=== PATIENT | female | born 1970 | race Caucasian/White ===

== ENCOUNTER 2017-08-15 08:14 | Emergency (ER) | payer SELFPAY ==
[2017-08-15] MEDS ORDERED: ONDANSETRON 4 MG/2 ML VIAL IVP ONE (09:06)
[2017-08-15] MEDS ORDERED: NS 1,000 ML IV ONE (09:06)
--- NOTE | 2017-08-15 09:12 | EDPHY ---
H & P Stated Complaint: cancer pt with abd pain gi bleeding Time Seen by Provider: 08/15/17 08:41 HPI/ROS: CHIEF COMPLAINT: Right upper quadrant pain, vomiting HISTORY OF PRESENT ILLNESS: 47-year-old female with metastatic follicular papillary cancer presents with right upper quadrant pain and vomiting. Onset of right upper quadrant pain 1 week ago, gradually increasing and moderate. Associated with multiple episodes of vomiting. Unable to tolerate oral fluids for 2 days. Also feels somewhat confused. No fever. Diagnosed with cancer originally starting in the thyroid in 2011, underwent chemotherapy and XRT. Recurrence in 2014. Last chemotherapy was in February 2017. Recently moved to [place]. REVIEW OF SYSTEMS: complete 10 point ROS negative except at noted in the HPI - Personal History LMP (Females 10-55): Hysterectomy Current Tetanus/Diphtheria Vaccine: Yes - Medical/Surgical History Hx Asthma: No Hx Chronic Respiratory Disease: No Hx Diabetes: No Hx Cardiac Disease: No Hx Renal Disease: No Hx Cirrhosis: No Hx Alcoholism: No Hx HIV/AIDS: No Hx Splenectomy or Spleen Trauma: No Other PMH: hysterectomy papillary follicular cancer with mets - Social History Smoking Status: Current every day smoker - Physical Exam Exam: General Appearance: Alert, pleasant Eyes: Pupils equal and round, no conjunctival pallor or injection ENT, Mouth: Mucous membranes dry, lower lip swelling, chapped Neck: Normal inspection Respiratory: Lungs are clear to auscultation Cardiovascular: Regular rate and rhythm Gastrointestinal: Abdomen is soft, right upper quadrant tenderness Neurological: A&O, nonfocal, normal gait Skin: Warm and dry Extremities: Mild bilateral upper extremity swelling Psychiatric: Mood and affect normal Constitutional: Initial Vital Signs Temperature (C) 36.6 C 08/15/17 08:19 Heart Rate 94 08/15/17 08:19 Respiratory Rate 18 08/15/17 08:19 Blood Pressure 135/85 H 08/15/17 08:19 O2 Sat (%) 97 08/15/17 08:19 O2 Delivery Mode Room Air Allergies/Adverse Reactions: metoclopramide [From Reglan] Allergy (Verified 08/15/17 08:17) prochlorperazine [From Compazine] Allergy (Verified 08/15/17 08:17) Sulfa (Sulfonamide Antibiotics) Allergy (Verified 08/15/17 08:17) ivp dye Allergy (Uncoded 08/15/17 08:16) Home Medications: Medication Instructions Recorded Calcitriol 08/15/17 Ondansetron Odt [Zofran Odt 4 mg 4 mg PO Q4 PRN #6 tab 08/15/17 (*)] Phenergan 08/15/17 Synthroid 08/15/17 Thyrogen 08/15/17 Valium 08/15/17 Vimpat 08/15/17 Medical Decision Making - Diagnostics Imaging Results: Imaging Impressions Abdomen/Pelvis CT 08/15/17 09:06 Impression: 1. No evidence of bowel obstruction or acute intraabdominal process. 2. No evidence of metastatic disease. Specifically, no liver mass (sensitivity is diminished without IV contrast). 3. Bilateral nephrolithiasis. Findings discussed with Emergency Department physician, Daniela Melendez on 2017 at 9:41 a.m. Attention: This CT examination is specifically designed to evaluate patients who are clinically suspected of having acute obstructive uropathy. This examination does not use radiographic contrast, and as such, provides only a limited evaluation of the abdomen, pelvis and retroperitoneum. If there is further clinical suspicion for pathological conditions other than obstructive uropathy, a complete CT evaluation of the abdomen and pelvis utilizing intravenous, oral, and rectal contrast should be considered. ED Course/Re-evaluation: This patient presents with right lower quadrant pain and vomiting. IV normal saline 1 L and Zofran [address] scan without contrast ordered because of history of anaphylaxis to IV contrast. Laboratory tests discussed with the patient and her and are unremarkable. CT scan is also unremarkable for acute findings. Admission versus discharge home discussed with the patient. She was strongly prefer to go home. She was given ice chips and if she can tolerate ice chips, she will be discharged home. Abdominal exam remains benign. Tolerated oral fluids well. Abdomen remains benign. Warning signs discussed. Will follow up with Oncology as scheduled. Differential Diagnosis: Differential diagnosis includes though it is not limited to appendicitis, cholecystitis, diverticulitis, pyelonephritis, bowel perforation, small bowel obstruction. - Data Points Laboratory Results: Laboratory Results 08/15/17 09:00 08/15/17 09:00 08/15/17 08/15/17 08/15/17 09:20 09:00 09:00 WBC 6.16 10^3/uL 10^3/uL (3.80-9.50) RBC 3.64 10^6/uL L 10^6/uL (4.18-5.33) Hgb 11.0 g/dL L g/dL (12.6-16.3) Hct 33.7 % L % (38.0-47.0) MCV 92.6 fL fL (81.5-99.8) MCH 30.2 pg pg (27.9-34.1) MCHC 32.6 g/dL g/dL (32.4-36.7) RDW 16.3 % H % (11.5-15.2) Plt Count 229 10^3/uL 10^3/uL (150-400) MPV 9.9 fL fL (8.7-11.7) Neut % (Auto) 70.1 % % (39.3-74.2) Lymph % (Auto) 22.7 % % (15.0-45.0) [place] % (Auto) 5.4 % % (4.5-13.0) Eos % (Auto) 1.0 % % (0.6-7.6) Baso % (Auto) 0.5 % % (0.3-1.7) Nucleat RBC Rel Count 0.0 % % (0.0-0.2) Absolute Neuts (auto) 4.32 10^3/uL 10^3/uL (1.70-6.50) Absolute Lymphs (auto) 1.40 10^3/uL 10^3/uL (1.00-3.00) Absolute Monos (auto) 0.33 10^3/uL 10^3/uL (0.30-0.80) Absolute Eos (auto) 0.06 10^3/uL 10^3/uL (0.03-0.40) Absolute Basos (auto) 0.03 10^3/uL 10^3/uL (0.02-0.10) Absolute Nucleated RBC 0.00 10^3/uL 10^3/uL (0-0.01) Immature Gran % 0.3 % % (0.0-1.1) Immature Gran # 0.02 10^3/uL 10^3/uL (0.00-0.10) Sodium 139 mEq/L mEq/L (135-145) Potassium 4.0 mEq/L mEq/L (3.3-5.0) Chloride 101 mEq/L mEq/L (97-110) Carbon Dioxide 29 mEq/l mEq/l (22-31) Anion Gap 9 mEq/L mEq/L (8-16) BUN 15 mg/dL mg/dL (7-23) Creatinine 1.1 mg/dL H mg/dL (0.6-1.0) Estimated GFR 53 Glucose 82 mg/dL mg/dL (70-100) Calcium 8.7 mg/dL mg/dL (8.5-10.4) Total Bilirubin 0.8 mg/dL mg/dL (0.1-1.4) Conjugated Bilirubin 0.5 mg/dL mg/dL (0.0-0.5) Unconjugated Bilirubin 0.3 mg/dL mg/dL (0.0-1.1) AST 135 IU/L H IU/L (14-46) ALT 86 IU/L H IU/L (9-52) Alkaline Phosphatase 90 IU/L IU/L (38-126) Ammonia 15.0 uMOL/L uMOL/L (9.0-30.0) Total Protein 7.3 g/dL g/dL (6.3-8.2) Albumin 3.8 g/dL g/dL (3.5-5.0) Lipase 210 IU/L IU/L (23-300) Medications Given: Discontinued Medications Sodium Chloride (Ns) 1,000 mls @ 0 mls/hr IV EDNOW ONE; Wide Open PRN Reason: Protocol Stop: 08/15/17 09:07 Last Admin: 08/15/17 09:31 Dose: 1,000 mls Morphine Sulfate (Morphine) 4 mg IVP EDNOW ONE Stop: 08/15/17 09:36 Last Admin: 08/15/17 09:41 Dose: 4 mg Ondansetron HCl (Zofran) 4 mg IVP EDNOW ONE Stop: 08/15/17 09:07 Last Admin: 08/15/17 09:31 Dose: 4 mg Departure - Departure Disposition: Home, Routine, Self-Care Clinical Impression: Abdominal pain Qualifiers: Abdominal location: right upper quadrant Qualified Code(s): R10.11 - Right upper quadrant pain Vomiting Qualifiers: Vomiting type: unspecified Vomiting Intractability: non-intractable Nausea presence: with nausea Qualified Code(s): R11.2 - Nausea with vomiting, unspecified Condition: Good Instructions: Acute Nausea and Vomiting (ED), Acute Abdominal Pain (ED) Additional Instructions: 1. Clear liquids for 24 hours. 2. Advance diet as tolerated. I suggest the BRAT diet to start: bananas, rice, applesauce and toast. 3. Return for worsening symptoms, persistent vomiting, abdominal pain, any concerns. 4. Follow up with the Cancer [facility] as scheduled. Referrals: Naveen Elias MD [Medical Doctor] - As per Instructions (Call to make an appointment.) Prescriptions: Ondansetron Odt [Zofran Odt 4 mg (*)] 4 mg PO Q4 PRN #6 tab PRN Reason: Nausea
[2017-08-15 09:13] LABS: PLATELET COUNT 229 10^3/uL (150-400)
[2017-08-15 11:06] VITALS: BP 132/98
== END 2017-08-15 11:06 | disposition home or self-care (01) ==
DX: R10.11 Right upper quadrant pain (principal); R11.2 Nausea with vomiting, unspecified; E86.9 Volume depletion, unspecified; F17.200 Nicotine dependence, unspecified, uncomplicated; Z90.710 Acquired absence of both cervix and uterus
CPT/HCPCS: 96374; J2270; J2405

== ENCOUNTER 2017-08-16 00:21 | Inpatient (IN) | payer SELFPAY ==
[2017-08-16] MEDS ORDERED: NS 1,000 ML IV ONE (00:33)
[2017-08-16] MEDS ORDERED: ONDANSETRON 4 MG/2 ML VIAL IVP ONE (00:33)
--- NOTE | 2017-08-16 00:49 | EDPHY ---
H & P Stated Complaint: N&V here earlier Time Seen by Provider: 08/16/17 00:49 HPI/ROS: HPI CHIEF COMPLAINT: Nausea vomiting continues vomiting. HISTORY OF PRESENT ILLNESS: Patient 47-year-old female, history of follicular papillary cancer, status post chemotherapy, last chemotherapy in February, she was seen here in the emergency room earlier for nausea vomiting and abdominal pain. The patient presents emergency room with nausea vomiting. She denies any significant abdominal pain denies diarrhea. She states that since being discharged she has continued vomiting. She denies any arcelia hematemesis. Past Medical History: Follicular Papillary Cancer Past Surgical History: Cholecystectomy Social History: Denies daily use of drugs alcohol or tobacco. Family History: Noncontributory ROS REVIEW OF SYSTEMS: A comprehensive 10 point review of systems is otherwise negative aside from elements mentioned in the history of present illness. Exam Constitutional triage nursing summary reviewed, vital signs reviewed, awake/ alert. Eyes normal conjunctivae and sclera, EOMI, PERRLA. HENT normal inspection, atraumatic, moist mucus membranes, no epistaxis, neck supple/ no meningismus, no raccoon eyes. Respiratory clear to auscultation bilaterally, normal breath sounds, no respiratory distress, no wheezing. Cardiovascular rate normal, regular rhythm, no murmur, no edema, distal pulses normal. Gastrointestinal soft, non-tender, no rebound, no guarding, normal bowel sounds, no distension, no pulsatile mass. Genitourinary no CVA tenderness. Musculoskeletal no midline vertebral tenderness, full range of motion, no calf swelling, no tenderness of extremities, no meningismus, good pulses, neurovascularly intact. Skin pink, warm, & dry, no rash, skin atraumatic. Neurologic awake, alert and oriented x 3, AAOx3, moves all 4 extremities equally, motor intact, sensory intact, CN II-XII intact, normal cerebellar, normal vision, normal speech. Psychiatric normal mood/affect. Heme/Lymph/Immune no lymphadenopathy. Differential diagnosis includes but is not limited to and in no particular order : Bowel obstruction, appendicitis, gallbladder disease, diverticulitis, colitis , enteritis, perforated viscus, gastritis, GERD, esophagitis, urinary tract infection, pyelonephritis, kidney stones Medical Decision Making: Plan for this patient due to ongoing nausea vomiting have reviewed previous ER chart, patient received IV fluids nausea medicine and re-evaluation. However patient is requesting be admitted for ongoing nausea vomiting. Her abdomen is soft nontender here. I do not feel that needs further imaging. Re-evaluation: Source: Patient - Personal History LMP (Females 10-55): Post Menopausal Current Tetanus/Diphtheria Vaccine: Unsure Current Tetanus Diphtheria and Acellular Pertussis (TDAP): Unsure - Medical/Surgical History Hx Asthma: No Hx Chronic Respiratory Disease: No Hx Diabetes: No Hx Cardiac Disease: No Hx Renal Disease: No Hx Cirrhosis: No Hx Alcoholism: No Hx HIV/AIDS: No Hx Splenectomy or Spleen Trauma: No Other PMH: hysterectomy papillary follicular cancer with mets - Social History Smoking Status: Current every day smoker Constitutional: Initial Vital Signs Temperature (C) 36.8 C 08/16/17 00:23 Heart Rate 89 08/16/17 00:23 Respiratory Rate 14 08/16/17 00:23 Blood Pressure 137/95 H 08/16/17 00:23 O2 Sat (%) 97 08/16/17 00:23 O2 Delivery Mode Room Air Allergies/Adverse Reactions: metoclopramide [From Reglan] Allergy (Verified 08/15/17 08:17) prochlorperazine [From Compazine] Allergy (Verified 08/17/17 01:57) Sulfa (Sulfonamide Antibiotics) Allergy (Verified 08/15/17 08:17) ivp dye Allergy (Uncoded 08/15/17 08:16) Home Medications: Medication Instructions Recorded Thyroid Compound 08/16/17 Calcitriol [Calcitriol (*)] 0.25 mcg PO DAILY 08/16/17 Diazepam [Diazepam Rectal Gel 0 mg AR 08/16/17 2.5mg (*)] Lacosamide [Vimpat 50 mg (*)] 50 mg PO DAILY 08/16/17 Medical Decision Making - Data Points Laboratory Results: Laboratory Results 08/16/17 01:05 08/16/17 01:05 Medications Given: Calcitriol (Calcitriol) 0.25 mcg PO DAILY [facility] Stop: 02/13/18 08:59 Last Admin: 08/17/17 11:17 Dose: Not Given Cephalexin HCl (Keflex) 500 mg PO Q6HRS [facility] PRN Reason: Protocol Stop: 09/15/17 17:59 Last Admin: 08/17/17 23:53 Dose: 500 mg Sodium Chloride (Ns) 1,000 mls @ 125 mls/hr IV CONT [facility] Stop: 02/12/18 01:59 Last Admin: 08/18/17 01:46 Dose: 1,000 mls Lacosamide (Vimpat) 50 mg PO DAILY [facility] Stop: 02/13/18 08:59 Last Admin: 08/17/17 11:17 Dose: Not Given Levothyroxine Sodium (Synthroid Ivp Syringe) 100 mcg IVP DAILY AT 10AM [facility] Stop: 02/13/18 05:59 Last Admin: 08/17/17 12:59 Dose: 100 mcg Morphine Sulfate (Morphine) 1 mg IVP Q4HRS PRN PRN Reason: Pain, Severe Unable to Take PO Stop: 08/27/17 13:01 Last Admin: 08/17/17 22:06 Dose: 1 mg Ondansetron HCl (Zofran) 4 mg IVP Q4HRS PRN PRN Reason: Nausea/Vomiting, Can't Take PO Stop: 02/12/18 01:53 Last Admin: 08/16/17 17:41 Dose: 4 mg Ondansetron HCl (Zofran Odt) 4 mg PO Q6HRS PRN PRN Reason: Nausea/Vomiting, Use 1st Stop: 02/13/18 01:46 Last Admin: 08/17/17 16:59 Dose: 4 mg Oxycodone HCl (Oxycodone Ir) 2.5 - 10 mg PO Q4HRS PRN PRN Reason: Pain, Severe Able to Take PO Stop: 08/26/17 17:29 Last Admin: 08/18/17 01:50 Dose: 10 mg Promethazine HCl (Phenergan) 6.25 - 12.5 mg IVP Q6HRS PRN PRN Reason: Nausea/Vomiting, Can't Take PO Stop: 02/12/18 02:01 Last Admin: 08/17/17 22:08 Dose: 6.25 mg Promethazine HCl (Phenergan) 6.25 mg PO Q6HRS PRN PRN Reason: Nausea/Vomiting, Use 2nd Stop: 02/13/18 01:46 Last Admin: 08/17/17 04:23 Dose: 6.25 mg Senna/Docusate Sodium (Senokot-S) 1 - 2 tab PO BID [facility] PRN Reason: Protocol Stop: 02/12/18 08:59 Last Admin: 08/17/17 22:49 Dose: Not Given Discontinued Medications Famotidine (Pepcid) 20 mg IVP EDNOW ONE Stop: 08/16/17 01:06 Last Admin: 08/16/17 01:13 Dose: 20 mg Hydromorphone HCl (Dilaudid) 0.2 - 1 mg IVP Q2HRS PRN PRN Reason: Pain, Severe Unable to Take PO Stop: 08/26/17 09:49 Last Admin: 08/16/17 10:15 Dose: 0.5 mg Sodium Chloride (Ns) 1,000 mls @ 0 mls/hr IV EDNOW ONE; Wide Open PRN Reason: Protocol Stop: 08/16/17 00:34 Last Admin: 08/16/17 00:42 Dose: 1,000 mls Levothyroxine Sodium (Synthroid Ivp Syringe) 200 mcg IVP DAILY AT 10AM [facility] Stop: 02/12/18 15:29 Last Admin: 08/16/17 16:06 Dose: 200 mcg Lorazepam (Ativan Injection) 0.5 - 1 mg IVP Q8HRS PRN PRN Reason: Anxiety, Unable to Take PO Stop: 02/12/18 01:53 Last Admin: 08/16/17 02:36 Dose: 1 mg Magnesium Citrate (Magnesium Citrate) 300 ml PO ONCE ONE Stop: 08/16/17 09:16 Last Admin: 08/16/17 12:01 Dose: Not Given Ondansetron HCl (Zofran) 4 mg IVP EDNOW ONE Stop: 08/16/17 00:34 Last Admin: 08/16/17 01:14 Dose: 4 mg Oxycodone HCl (Oxycodone Ir) 2.5 - 5 mg PO Q4HRS PRN PRN Reason: Pain, Severe Able to Take PO Stop: 08/26/17 17:29 Last Admin: 08/16/17 18:02 Dose: 5 mg Departure - Departure Disposition: [facility] Clinical Impression: Nausea and vomiting Qualifiers: Vomiting type: unspecified Vomiting Intractability: non-intractable Qualified Code(s): R11.2 - Nausea with vomiting, unspecified Condition: Fair
[2017-08-16] MEDS ORDERED: FAMOTIDINE 20 MG/2 ML SDV IVP ONE (01:05)
[2017-08-16 01:17] LABS: PLATELET COUNT 241 10^3/uL (150-400)
[2017-08-16 01:25] LABS: INR 0.97 (0.83-1.16); PROTIME(PATIENT) 13.1 SEC (12.0-15.0)
[2017-08-16] MEDS ORDERED: LORazepam 2 MG/ML INJ IVP PRN ×2 (01:54→17:30)
[2017-08-16] MEDS ORDERED: LACTULOSE 20 GM/30 ML UDCUP PO PRN (02:56)
[2017-08-16] MEDS ORDERED: MAGNESIUM HYDROXIDE 30 ML UDCUP PO PRN (02:56)
[2017-08-16] MEDS ORDERED: POLYETHYLENE GLYCOL 3350 17 GM PKT PO PRN (02:56)
[2017-08-16] MEDS ORDERED: BISACODYL 10 MG SUPP PR PRN (02:56)
[2017-08-16] MEDS: NS 1,000 ML IV SCH (03:45)
--- NOTE | 2017-08-16 04:10 | GHP ---
[f rep st] HISTORY AND PHYSICAL DATE OF ADMISSION: 08/16/2017 SOURCE: Patient provides history, appears reliable. at bedside and supplements details. EMR was reviewed and case discussed with ED provider. CHIEF COMPLAINT: Intractable nausea and vomiting. HISTORY OF PRESENT ILLNESS: This is a pleasant 47-year-old female with past medical history significant for metastatic follicular papillary thyroid cancer with history of thyroidectomy 2011, status post chemoradiation and recurrence 2014, iatrogenic hypothyroidism, tobacco dependence, who presents to the emergency department for this 2nd time in 24 hours with complaints of intractable nausea, vomiting, and right upper quadrant abdominal pain. The patient has endorsed that over the past week she has had increasing nausea. In the last 2 days she has had significantly poor oral intake. She reports some fevers and chills at home. Measured temperature at home, T-max was 100 Fahrenheit. The patient also reports that she is always cold secondary to her history of hypothyroidism. Additionally, over the last 1-2 months, the patient reports that she has been increasingly clumsy, bumping into objects, complaining of her foot dragging intermittently. She has also reported some numbness, tingling in this extremity. She denies any syncopal episodes. The patient does also have a history of seizures following her thyroidectomy. She has been on Vimpat, but has not been able to keep anything down the last several days. reports that she has had multiple short-lived seizures at home in the last several days. The patient also complains of a headache, increasing anxiety and stress. She has had some blurry vision progressively over the last several weeks. The patient denies any syncopal episodes. No chest pain or shortness of breath. The patient does take Phenergan at home without any issues. REVIEW OF SYSTEMS: CONSTITUTIONAL: Positive fevers chills as noted above. Always cold. SKIN: No rash or sores. ENT: The patient denies any rhinorrhea, sore throat. EYES: Patient reporting progressively blurry vision and ocular pain as noted above. CV: No chest pain or palpitations. RESPIRATORY: No shortness of breath or cough. GI: Nausea and vomiting. No hematemesis. The patient without any diarrhea. She has had some constipation. She complains of really diffuse abdominal distention and pain, greatest on the right side. : Patient denies any dysuria or hematuria. She does report a history of microscopic hematuria and notes that she has a history possibly a vascular anomaly versus invasive tumor that was in process of being worked up. The patient denies any frequency or urgency, but she has been complaining of right flank pain. MUSCULOSKELETAL: The patient with myalgias, joint pain diffusely. No headache, numbness, tingling in her lower extremities. PSYCH: Anxiety and increased stressors. Remainder of review of systems negative except as noted above. ALLERGIES: Metoclopramide, sulfa, Compazine, contrast, the patient reports that she has an anaphylactic reaction. HOME MEDICATIONS: As per EMR: Vimpat, Valium p.r.n. for seizures, Synthroid, Phenergan, Zofran, calcitriol. PAST MEDICAL HISTORY: Significant for seizures, metastatic follicular papillary thyroid cancer, hypothyroidism, tobacco abuse. PAST SURGICAL HISTORY: Significant for hysterectomy, BSO, cholecystectomy, thyroidectomy with 2 neck dissections, appendectomy. FAMILY HISTORY: Significant for sister with colon cancer, at age 31. Mother with history of ovarian cancer. Maternal grandmother with ovarian cancer. Maternal aunt also with ovarian cancer. Father with coronary artery disease and CVA. Paternal grandmother with head and neck cancer. SOCIAL HISTORY: Patient is . Recently moved from [place] 3-1/2 weeks ago. Patient smokes half pack per day. She also has been utilizing marijuana daily. She does not use any illicit drugs. CODE STATUS: Full. PHYSICAL EXAM: VITALS: Upon arrival, blood pressure 135/85, heart rate is 94, respiratory rate 18, O2 saturation 97% on room air, temperature 36.6. Current vitals blood pressure 135/96, heart rate 77, respiratory rate 18, O2 saturation 95% on room air, temperature 36.8. GENERAL: No acute distress. Patient appears acutely ill but nontoxic, quite fatigued. Additionally, she appears much older than stated age. HEAD: Normocephalic, atraumatic. EYES: Extraocular muscles are grossly intact. Pupils equal, round, and with decreased reactivity to light bilaterally, but symmetric. No scleral icterus or conjunctival injection. ENT: Mucous membranes are dry. No oropharyngeal erythema. Dentition in poor condition. No nasal discharge. NECK: Supple. Trachea midline. Patient with a vertical and well-healed incision at her neck. CV: Regular rate and rhythm. Slightly distant heart sounds. No murmurs, rubs, or gallops appreciated. RESPIRATORY: Lungs clear to auscultation bilaterally. No wheezes, rales, rhonchi appreciated. ABDOMEN: Slightly distended. Patient with diffuse tenderness to light palpation. No rebound, guarding. Negative Slater sign. Hypoactive bowel sounds. : Patient without any suprapubic tenderness to palpation. She has a positive CVA tenderness on the right side. MUSCULOSKELETAL: Grossly normal. The patient is able to sit up independently. She moves all extremities. Strength is intact and symmetric bilaterally. NEURO: Cranial nerves grossly normal. No facial drooping. Again, sits up independently, moves all extremities, nothing focal on exam. PSYCH: The patient is quite anxious and intermittently tearful. Her thought process content and questions are otherwise appropriate. LABORATORY STUDIES: WBC 6.16, H and H 10.9 and 32.8, MCV of 92.1, platelet count is 241. No bands. PT 13.1, INR 0.97, PTT is 35.8. Lactic acid 1.5. Sodium 138, potassium 3.9, chloride 101, CO2 is 27, anion gap 10, BUN is 12, creatinine is 1.1, GFR 53, glucose 106, calcium is 8.4, total bilirubin is 1.0, ALT is 83 and AST is 153, stable from yesterday morning 135 and 86, current alkaline phosphatase 92, ammonia is 15.0, total protein 7.8, albumin 4.1, lipase is 126. Alcohol less than 10. Patient has not yet voided for a U-tox or UA sample. CT abdomen and pelvis obtained from 08/15/2017 ED visit. That is negative for any evidence of bowel obstruction or acute intraabdominal process. No evidence of metastatic disease, limited without IV contrast. Bilateral nephrolithiasis is noted. No hydronephrosis is noted. Urinary bladder is empty. Abdominal x-ray: Image reviewed myself. Report is still pending. Multiple surgical clips in the right upper quadrant and lower abdomen. Constipation. Nonspecific bowel gas pattern. No evidence of obstruction. ASSESSMENT AND PLAN: A pleasant 47-year-old female with history of metastatic follicular thyroid cancer, tobacco abuse, who presents to the emergency department for the 2nd time in 24 hours with intractable nausea and vomiting. 1. Intractable nausea, vomiting. The patient received Zofran in the emergency department. She continues to complain of some nausea. Ativan and Phenergan and Benadryl will be available IV. Awaiting patient to have a void to check a urinalysis for a urinary tract infection. She does have evidence of nephrolithiasis bilaterally. This could also be contributing. Gastroenteritis is a possibility; however, it has been almost a week and less likely. She does have constipation on imaging as well, which could be contributing to her abdominal pain and distention, so I will add on a bowel regimen. The patient reports that she was identified to have some sort of invasive process in the renovascular system on the right. They are quite vague on details but anticipated that she was going to have a premedicated study for CT of abdomen and pelvis with contrast. The patient reports that she is quite concerned regarding her history of anaphylaxis and actually does not want to proceed with this study at this time. She is amenable to obtaining a renal ultrasound, and we will get this in the morning. 3. Acute kidney injury is likely prerenal in nature with nausea, vomiting, and dehydration. Patient again has still yet to void. She did receive intravenous fluids in the emergency department. We will plan to continue this on the floor for hydration. 4. Dehydration as noted above. 5. Nephrolithiasis. Supportive care. Intravenous fluids. The patient does have flank pain on exam. 6. Transaminitis, possibility of being chronic versus in response to continued nausea, vomiting. No previous baseline available except for yesterday's visit. We will plan to repeat LFTs in the morning. 7. Anemia. Patient reports history of chronic anemia due to microscopic blood loss and anemia of chronic disease. We will monitor morning CBC. No evidence of active bleeding at this time. 8. Headaches, numbness, tingling. The patient says she has had intermittent episodes of disorientation and confusion, also weakness and concerns that she has intermittent difficulties mobilizing her lower extremities and footdrop. I suspect a large component at this time is related to dehydration and significant amount of anxiety but need to consider metastatic process. Patient is scheduled for outpatient PET. We will reassess in the morning as per day team and consider further intracranial or head imaging. 9. Chronic medical issues. a. Metastatic follicular papillary cancer. Patient reports she has an appointment with [facility] in the beginning of August. b. Tobacco abuse. Cessation encouraged. Patient declined a nicotine patch at this time. c. Seizure disorder. Resume patient's Vimpat once her nausea is under better control. If she should experience another seizure, then will consider just intravenous infusion until such time the patient can resume her home medications. d. Hypothyroidism, iatrogenic. Status post thyroidectomy. Check a TSH and continue supplementation. 10. Fluid, electrolyte, nutrition. Intravenous fluids as noted above. Electrolyte monitoring and replacement if needed. Nutrition is clears and then advance as tolerated. 11. Prophylaxis, sequential compression devices, anticoagulation if patient should stay additional day, otherwise, she is low risk will encourage mobilization. 12. COR status is full. DISPOSITION: The patient admitted to observation status on the medical floor at this time pending above interventions and reassessment. /[id number]/MODL MTDD
[2017-08-16] MEDS: ONDANSETRON 4 MG/2 ML VIAL IVP PRN ×2 (08:47→17:41)
[2017-08-16] MEDS ORDERED: HYDROmorphONE/DILAUDID 1 MG/ML INJ IVP PRN (09:50)
[2017-08-16] MEDS ORDERED: HYDROmorphONE/DILAUDID 2 MG TAB PO PRN (09:50)
[2017-08-16] MEDS: SENNOSIDES/DOCUSATE SODIUM TAB PO SCH ×2 (11:57→20:18)
[2017-08-16] MEDS: MAGNESIUM CITRATE 300 ML BOTTLE PO ONE ×2 (11:58→12:01)
[2017-08-16] MEDS: PROMETHAZINE HCL 25 MG/ML INJ IVP PRN ×2 (12:06→21:48)
[2017-08-16] MEDS ORDERED: LEVOTHYROXINE 100 MCG/5 ML SYR IVP SCH (15:30)
--- NOTE | 2017-08-16 16:28 | ASMTCMCOM ---
CM Note CM Note Notes: Spoke with MD and RN, pt tells RN they are traveling, they've come from [place] and really like [place]. It does not appear that they have insurance. Per MD, pt will be here a few days, she may need IV synthroid d/t thyroid deficiencies. Pt is independent but needs are unclear at this time, CHIKA w/f. DC Plan: TBD Date Signed: 08/16/2017 04:28 PM Electronically Signed By:Cici Pérez RN
--- NOTE | 2017-08-16 17:27 | HOSPPROG ---
Hospitalist Progress Note Assessment/Plan: Prolonged service in addition to the time originally spent on the history and physical by Dr. Cher Palencia, direct patient care, [id number] with patient and her boyfriend, on 2 separate occasions, totaling 35 min of care time (1:15-1 :30 p.m. and 3:10-3:30 p.m.), addressing the following: -patient continued to experience abdominal pain and nausea throughout the course the day, vomiting any oral intake, unable to keep down oral medications -physical exam reveals some mild tenderness but no rebound, no guarding, no peritoneal signs, slightly hypoactive bowel sounds, originally alert awake oriented times 0, with visible obtundation, responsive to tactile stimuli only, then patient became more spontaneously active, reactive to verbal stimuli, answering some questions appropriately, others inappropriately, and moving all 4 extremities, heart rhythm regular, not tachycardic, lungs clear to auscultation, no meningeal signs, no nuchal rigidity, raised mucosal lesions on the lower lip, patient does not open up her mouth widely enough to get a better oral exam -I suspect that the patient's acute encephalopathy is a combination of sedating anti emetic/pain medication as well as severe hypothyroidism -discussed with pharmacy, initiate high-dose IV levothyroxine given the patient is unable to tolerate oral medications, 200 mcg today, 100 mcg daily thereafter -no indication for IV steroids as the cause of the patient's severe hypothyroidism is most likely previous thyroid ablated of therapy, and is unlikely to be an autoimmune attack on her thyroid gland, given her history of reported thyroid cancer -reduce the dose ranges of her antiemetic medications to provide less sedating effect -given the patient's current encephalopathy, she does not appear to have the capacity to make rational medical decisions, and she is unable to sign herself out AMA at this time, I have counseled the patient not to leave AMA and at this time she is agreeable to remain in this hospital and receive ongoing care -her boyfriend will continue to encourage her to receive ongoing care and he has been able to deescalate the patient and reduce her agitation -I discussed with the nurse that if the patient attempts to leave against medical advice moving forward, the nurse did contact the covering hospitalist provider to perform a bedside assessment for capacity, to determine whether the patient can leave AMA verses be placed on a detainer -I suspect that some of the patient's presenting symptoms may be secondary to her severe hypothyroidism and lack of access to her home Synthroid, for what has reportedly been at least 1 week -I also suspect the patient may have a chronic continuous opiate and benzodiazepine physiologic dependence, as the patient reports that she is chronically taking MS Contin and Valium, but she is somewhat nondescript in revealing the frequency of which she has been taking these medications as well as how long she has been off of them, and the boyfriend reports that the patient 's symptoms of tremulousness, focal seizure, and gait instability have been escalating recently, likely secondary to benzodiazepine and opiate withdrawal if she has been unable to access these medications -consequently, will place her on a CIWA protocol, not for alcohol but for benzodiazepine, as well as seizure precautions -our pharmacists is also unable to confirm the prescriptions for the patient's reported MS Contin Valium, raising the question of whether the patient has been abusing these been occasions in the outpatient setting and whether some of her presentation is in fact drug-seeking -will monitor her closely for drug-seeking behavior, and attempt to avoid utilizing intravenous and high-dose opiates -the patient appears to have a heel pressure injury present on admission with possible surrounding cellulitis, the patient reports that Keflex has been prescribed in the past but has not been adhered to, will provide Keflex 500 mg q.6, continue monitor closely, get wound care consultation -I suspect that a contributing factor to the patient's abdominal discomfort is severe constipation which may be secondary to opiate dependency as well as severe hypothyroidism, and I have encouraged the patient to allow us to perform enemas and suppositories Objective: Vital Signs Temp Pulse Resp BP Pulse Ox 36.2 C 70 16 136/98 H 16 L 08/16/17 16:00 08/16/17 16:00 08/16/17 11:31 08/16/17 16:00 08/16/17 16:00 08/15/17 08/16/17 08/17/17 05:59 05:59 05:59 Intake Total 1000 120 Output Total 0 600 Balance 1000 -480 PT 13.1 SEC (12.0-15.0) 08/16/17 01:05 INR 0.97 (0.83-1.16) 08/16/17 01:05 ICD10 Worksheet Patient Problems: Problems Problem Status Onset Nausea and vomiting Acute
[2017-08-16] MEDS ORDERED: DICYCLOMINE 20 MG TAB PO PRN (17:30)
[2017-08-16] MEDS ORDERED: LORazepam 1 MG TAB PO PRN (17:30)
[2017-08-16] MEDS: oxyCODONE IR 5 MG TAB PO PRN ×3 (17:40→21:53)
[2017-08-16] MEDS: CEPHALEXIN 500 MG CAP PO SCH ×2 (20:19→20:23)
[2017-08-17] MEDS: CEPHALEXIN 500 MG CAP PO SCH ×5 (00:57→23:53)
[2017-08-17] MEDS ORDERED: PROMETHAZINE HCL 25 MG SUPPR PR PRN (01:47)
[2017-08-17] MEDS ORDERED: PROMETHAZINE HCL 25 MG TAB PO PRN (01:47)
[2017-08-17] MEDS: oxyCODONE IR 5 MG TAB PO PRN ×2 (04:23→09:29)
[2017-08-17] MEDS: LEVOTHYROXINE 100 MCG/5 ML SYR IVP SCH ×2 (04:28→12:59)
[2017-08-17 05:29] LABS: PLATELET COUNT 214 10^3/uL (150-400)
[2017-08-17] MEDS: ONDANSETRON DISINTEGRATING 4 MG TAB PO PRN ×2 (09:08→16:59)
[2017-08-17] MEDS ORDERED: ALTEPLASE 2 MG VIAL IVP PRN (09:12)
[2017-08-17] MEDS: LACOSAMIDE 50 MG TAB PO SCH (11:17)
[2017-08-17] MEDS: CALCITRIOL 0.25 MCG CAP PO SCH (11:17)
[2017-08-17] MEDS: SENNOSIDES/DOCUSATE SODIUM TAB PO SCH ×2 (11:17→22:49)
[2017-08-17] MEDS: PROMETHAZINE HCL 25 MG/ML INJ IVP PRN ×2 (13:15→22:08)
--- NOTE | 2017-08-17 13:30 | HOSPPROG ---
Hospitalist Progress Note Assessment/Plan: 47y female with c/o confusion. First encounter, chart reviewed. D/W Dr cartagena *N/V -multifactorial -cont antimetics -vomiting any oral intake, unable to keep down oral medications -PICC placed *Severe Hypothyroidism -In setting of hx of thyroidectomy and papillary cancer -pt not taking home medication for at least 1 week - initiate high-dose IV levothyroxine 200 mcg once then 100 mcg daily -no indication for IV steroids as the cause of the patient's severe hypothyroidism is most likely previous thyroid ablated of therapy, and is unlikely to be an autoimmune attack on her thyroid gland, given her history of reported thyroid cancer -check TSH in am -consider endocrine consult *Acute encephalopathy -improved -combination of sedating medications and severe hypothyroidism *Chronic continuous opiate and benzodiazepine dependence -abnormal tox screen -reports chronically taking MS Contin and Valium, -cont low dose as to attempt to avoid severe withdrawl -CIWA protocol, not for alcohol but for benzodiazepine, as well as seizure precautions -pharmacists is also unable to confirm the prescriptions for the patient's reported MS Contin, Valium, raising the question of whether the patient has been abusing -drug-seeking behavior, attempt to avoid utilizing intravenous and high-dose opiates *Left foot wound -present on admission -surrounding cellulitis, -Keflex has been prescribed in the past but has not been adhered to -Keflex 500 mg q.6, continue monitor closely, -get wound care consultation -May need bedside debridement if not improving *severe constipation -secondary to opiate dependency as well as severe hypothyroidism, -enemas and suppositories ordered -bowel therapy *Fluid retention -in setting of severe hypothyroidism -IVF *Mouth wounds -chapped lips -wound care -follow *ZAKI -improved with fluids -prerenal *Transaminites -stable *Hx SZ -cont home meds *Hx cancer -fu oncology -PET outpatient *Anemia -likely chronic -stable *Dispo -unclear -will require further hospital care -will need outpt support Subjective: "I feel terrible" worse then yesterday. Feels swollen. Mouth pain. N /V. Objective: Vital Signs Temp Pulse Resp BP Pulse Ox 36.7 C 89 12 111/83 H 96 08/17/17 07:22 08/17/17 07:22 08/17/17 07:22 08/17/17 07:22 08/17/17 07:22 Laboratory Results 08/17/17 05:15 08/17/17 05:15 08/16/17 08/17/17 08/18/17 05:59 05:59 05:59 Intake Total 1000 1170 Output Total 0 600 Balance 1000 570 PT 13.1 SEC (12.0-15.0) 08/16/17 01:05 INR 0.97 (0.83-1.16) 08/16/17 01:05 - Physical Exam Constitutional: chronically ill appearing, uncomfortable, unkempt Eyes: PERRL, anicteric sclera, EOMI Ears, Nose, Mouth, Throat: ears appear normal, poor dentition, dry mucous membranes Cardiovascular: regular rate and rhythym, No JVD, No tachycardia, No edema Respiratory: no respiratory distress, no rales or rhonchi, reduced air movement Gastrointestinal: tenderness, No ascites, No guarding, No rebound, No distension Skin: warm, normal color, erythema, induration, No mottled Musculoskeletal: normal joint ROM, no joint effusions, pain with ROM, generalized weakness Neurologic: AAOx3 Psychiatric: not encephalopathic, anxious, agitated, poor insight, poor judgement, poor memory ICD10 Worksheet Patient Problems: Problems Problem Status Onset Nausea and vomiting Acute
[2017-08-17] MEDS: NS 1,000 ML IV SCH (15:28)
[2017-08-18] MEDS: NS 1,000 ML IV SCH (01:46)
[2017-08-18] MEDS: oxyCODONE IR 5 MG TAB PO PRN ×2 (01:50→07:51)
[2017-08-18] MEDS: PROMETHAZINE HCL 25 MG/ML INJ IVP PRN (04:06)
[2017-08-18] MEDS: CEPHALEXIN 500 MG CAP PO SCH ×2 (05:23→10:52)
[2017-08-18 07:43] VITALS: BP 141/105
[2017-08-18] MEDS: ONDANSETRON 4 MG/2 ML VIAL IVP PRN (07:50)
[2017-08-18] MEDS: SENNOSIDES/DOCUSATE SODIUM TAB PO SCH (07:50)
[2017-08-18] MEDS: CALCITRIOL 0.25 MCG CAP PO SCH (07:51)
[2017-08-18] MEDS: LACOSAMIDE 50 MG TAB PO SCH (07:52)
--- NOTE | 2017-08-18 08:43 | HOSPPROG ---
Hospitalist Progress Note Assessment/Plan: 47y female with c/o confusion. First encounter, chart reviewed. D/W Dr Owens *N/V -multifactorial -cont antiemetics -PICC was placed due to poor intake -per nursing staff is eating well *Severe Hypothyroidism - hx of thyroidectomy and papillary cancer - pt not taking home medication for at least 1 week - initiate high-dose IV levothyroxine 200 mcg once then 100 mcg daily -spoke w Dr Martinez and she can f/u with him as an OP, he recommends cont 100 mcg daily -patient states she was on 350mcg of Synthroid *Acute encephalopathy -resolved *Chronic continuous opiate and benzodiazepine dependence (says she is on medications for chronic pain ) -abnormal tox screen ( + for opioids, amphetamine and marijuana) -reports chronically taking MS Contin and Valium, *Left foot wound, per patient it is from a spider bite -present on admission -much improved -Keflex 500 mg q.6 (she has been declining this) *severe constipation -secondary to opiate dependency as well as severe hypothyroidism, -patient said this has resolved, had 3 bowel movements *Fluid retention -secondary to hypothyroidism *Mouth wounds -chapped lips -wound care -follow *ZAKI -resolved *Hx SZ -on Vimpat *elevated LFT's -could be from the Vimpat, trended down -check hepatitis panel *Hx cancer -fu oncology -PET outpatient *Anemia -likely chronic -stable *Plan: Mirna will need f/u with an ice rink attendant/this is a difficult situation for the patient and her . In the process of maybe moving from the [place] area. Mirna feels better in lower altitude. Explained to her and her that narcotics are not good for her in the setting of the hypothyroidism and slowing of her digestive tract. Will likely dc later today. Subjective: Mirna said she has ongoing pain in her right flank area. This has been chronic. Objective: Vital Signs Temp Pulse Resp BP Pulse Ox 35.9 C L 67 12 141/105 H 95 08/18/17 07:41 08/18/17 07:41 08/18/17 07:41 08/18/17 07:41 08/18/17 07:41 Microbiology 08/16/17 18:00 Herpes Simplex Virus I (PCR) - Final Oral - Lip Hsv-1 Dna Not Detected Herpes Simplex Virus II (PCR) - Final Hsv-2 Dna Not Detected - Final Laboratory Results 08/17/17 05:15 08/17/17 05:15 08/17/17 08/18/17 08/19/17 05:59 05:59 05:59 Intake Total 1170 2069 Output Total 600 Balance 570 2069 PT 13.1 SEC (12.0-15.0) 08/16/17 01:05 INR 0.97 (0.83-1.16) 08/16/17 01:05 - Physical Exam Constitutional: chronically ill appearing Eyes: PERRL Ears, Nose, Mouth, Throat: hearing normal Cardiovascular: regular rate and rhythym, bradycardia Respiratory: no respiratory distress Gastrointestinal: normoactive bowel sounds Skin: warm, other (small area of redness on the plantar part of her right foot, no edema) Musculoskeletal: full muscle strength Neurologic: AAOx3 Psychiatric: interacting appropriately ICD10 Worksheet Patient Problems: Problems Problem Status Onset Nausea and vomiting Acute
--- NOTE | 2017-08-18 09:15 | PDMN ---
Medical Necessity Medical necessity: MCG: GRG hypothyroism- unspecified 2 days: , N/V, unable to keep down PO meds, PICC line placed, acute encephalopathy- improving, severe constipation, L foot wound with surrounding cellulitis, shalonda improving, , > 2 midnights ongoing med nec care needed.
[2017-08-18] MEDS ORDERED: LEVOTHYROXINE 100 MCG TAB PO SCH (10:30)
[2017-08-18] MEDS: LEVOTHYROXINE 100 MCG/5 ML SYR IVP SCH (10:31)
--- NOTE | 2017-08-18 11:44 | ASMTDCNOTE ---
Case Management Discharge Discharge Order Complete? Answers: Yes Followup Appointment 08/21/2017 12:00 AM Patient to Obtain Answers: via MAP Medications Transportation Arranged Answers: Bus Tokens Family Notified Answers: Yes Notes: , Sebastien Discharge Comments Notes: Patient is being d/c'ed today.Patient's [place] Medicaid is since 2016. A longterm bed has been reserved for patient. She has a follow-up appointment with [facility]'s clinic on August 21, 2017 at 2:00 PM. Patient was given bus passes to get to her appointment in the event her car is still in the shop on . Patient's medications were mapped. Patient does not know if they are going to stay in [place] or if they are going to travel on. No further needs. Date Signed: 08/18/2017 11:43 AM Electronically Signed By:Charis Blandon LCSW
[2017-08-18 12:19] LABS: HEPATITIS A ANTIBODY IGM (BCH) NEGATIVE (NEGATIVE); HEPATITIS B CORE AB IGM NEGATIVE (NEGATIVE); HEPATITIS B SURFACE ANTIGEN NEGATIVE (NEGATIVE); HEPATITIS C ANTIBODY TOTAL REACTIVE (NEGATIVE)
--- NOTE | 2017-08-18 14:08 | GDS ---
[f rep st] DISCHARGE SUMMARY DISCHARGE DIAGNOSES: 1. Nausea and vomiting. 2. Severe hypothyroidism. 3. Acute encephalopathy. 4. Chronic continuous opioid and benzodiazepine dependence. 5. Left foot wound from a spider bite. 6. Severe constipation. 7. Fluid retention. 8. Mouth sores. 9. Acute kidney injury. 10. History of seizures. 11. Elevated liver function tests. 12. History of cancer. 13. Anemia. HISTORY: Briefly, Mirna Coronel is a 47-year-old female who is from the [facility]. She is traveling through [place] on vacation and thinking of moving here. She has a past medical history significant for metastatic follicular papillary thyroid cancer with a history of thyroidectomy in 2011, status post chemoradiation and recurrence in 2014, iatrogenic hypothyroidism, tobacco dependence. She presented to the emergency room for complaints of intractable nausea, vomiting, and right upper quadrant abdominal pain. She has a history of seizures following her thyroidectomy. She has been on Vimpat but says she has not been able to keep anything down. She was admitted to the hospital, treated with IV hydration, and improved significantly. She will be discharged today and get further follow up care at [facility], Endocrinology and with [facility]. HOSPITAL COURSE: 1. Nausea and vomiting. A PICC was placed because she was having emesis. She was eating and drinking well this morning. 2. Severe hypothyroidism. This is in the setting of a thyroidectomy and papillary cancer. She said she has not been taking her home medications. I reviewed her care with Endocrinology. They are recommending close followup and place her on 100 mcg of Synthroid daily. A prescription will be filled prior to discharge. 3. Acute encephalopathy, resolved. 4. Chronic continuous opiate and benzodiazepine dependence. Pharmacy reviewed her prescription to see if she has had any recent narcotic or benzodiazepine use. It is unclear that she has had any prescriptions filled. Recommend that she follow up with her primary care provider. Her toxicology screen was positive for opioids, amphetamine, and cannabis. 5. Left foot wound. This is from a spider bite, much improved. I have given her prescription for Keflex. Throughout her stay, she declined frequently to take the medication. Recommend she continue treatment until resolved. 6. Severe constipation. Resolved. 7. Fluid retention, very minimal. This is secondary to hypothyroidism. 8. Mouth wounds. She has chapped lips. 9. Acute kidney injury. Resolved. 10. History of seizures. On Vimpat. 11. Elevated liver function tests. This could be from the Vimpat. They have trended down. I am checking a hepatitis panel prior to discharge. 12. History of cancer. To further follow up with Oncology. She has a PET set up as an outpatient. 13. Anemia, probably from cancer. This is likely chronic. DISCHARGE CONDITION: Stable. Blood pressure is 141/105, heart rate is 67, respiratory rate of 12, O2 saturation on room air 95%, temperature 35.9 Celsius. MEDICATIONS AT DISCHARGE: Please see the EMR. DISCHARGE INSTRUCTIONS: 1. Follow up with [facility]. She has an appointment with them on 08/21 at 2 p.m. 2. Follow up with the [facility] for her PET scan. 3. Take the Keflex as prescribed. 4. Take the Synthroid every day, do not abruptly stop. She was given a prescription for 3 weeks. I also spoke with [facility], Dr. Mercedes. He is happy to see her in the outpatient setting. Greater than 30 minutes discharging and coordinating the patient's care. Copy requested to: [facility] [address] [place] [id number] /[id number]/[id number]
[2017-08-18] MEDS ORDERED: LACOSAMIDE 50 MG TAB PO SCH (21:00)
== END 2017-08-18 12:28 | disposition home or self-care (01) | DRG 391 ==
LOC: F3E 03:00 → OBSVTOIN 08-17 09:12
PROVIDERS: ADMIT Family Medicine; ATTEND Internal Medicine
PROC: 02HV33Z Insertion of Infusion Device into Superior Vena Cava, Percutaneous Approach (ICD-10-PCS; principal; 2017-08-17)
DX: R11.2 Nausea with vomiting, unspecified (principal); E89.0 Postprocedural hypothyroidism; G93.40 Encephalopathy, unspecified; T45.0X5A Adverse effect of antiallergic and antiemetic drugs, initial encounter; T42.4X5A Adverse effect of benzodiazepines, initial encounter; F11.221 Opioid dependence with intoxication delirium; F11.23 Opioid dependence with withdrawal; N17.9 Acute kidney failure, unspecified; G40.909 Epilepsy, unspecified, not intractable, without status epilepticus; W57.XXXA Bitten or stung by nonvenomous insect and other nonvenomous arthropods, initial encounter; S90.862A Insect bite (nonvenomous), left foot, initial encounter; N20.0 Calculus of kidney; E86.0 Dehydration; D63.8 Anemia in other chronic diseases classified elsewhere; Z85.850 Personal history of malignant neoplasm of thyroid; Z80.41 Family history of malignant neoplasm of ovary; Z88.2 Allergy status to sulfonamides; K59.00 Constipation, unspecified; R60.9 Edema, unspecified
CPT/HCPCS: 80305; 87529-90; 96374; C1751; G0378; G0472; G0480; J1170; J2060; J2270; J2405; J2550